=== PATIENT | female | born 1965 | race Hispanic/Latino ===

== ENCOUNTER 2018-05-11 12:10 | Emergency (ER) | payer OTHER ==
[~2018-05-11] VITALS: Ht 160 cm; Wt 136.5 kg
--- OUTSIDE RECORDS SUMMARY | 2018-05-11 12:15 | XMS REPORT | Clinical Summary ---
Author Author ALEXANDRA [facility] Address Unknown Phone Unavailable Care Team Providers Care Sports Attorney Name Role Phone Viveros--[facility]le PCP Allergies Comments Active Allergy Reactions Severity Noted Date Lose voice [place] 02/02/2018 Oral rash Coconut Rash Low 02/02/2018 Lose my voice [place] 02/02/2018 Medications End Date Status Medication Sig Dispensed Refills Start Date Active lisinopril-hydroCHLOROthi Take 1 tablet 0 azide by mouth (PRINZIDE,ZESTORETIC) daily. 20-25 mg per tablet Active gabapentin (NEURONTIN) Take 400 mg 0 400 MG capsule by mouth 2 (two) times daily. Active fentaNYL (DURAGESIC) 50 Place 1 patch 0 mcg/hr patch onto the skin every third day. Active esomeprazole (NEXIUM) 40 Take 40 mg by 0 MG capsule mouth daily. Active albuterol HFA (VENTOLIN Inhale 1 puff 0 HFA) 90 mcg/actuation by mouth via inhaler inhaler every 6 (six) hours as needed for Wheezing. Active budesonide-formoterol Inhale 2 0 (SYMBICORT) 160-4.5 puffs by mcg/actuation inhaler mouth via inhaler 2 (two) times daily. Active metoprolol (LOPRESSOR) 50 Take 50 mg by 0 MG tablet mouth 2 (two) times daily. 03/02/2018 Discontinued acetaminophen-codeine Take 1 tablet 30 tablet 0 (TYLENOL #4) 300-60 mg by mouth 8 per tablet every 4 (four) hours as needed for Pain for up to 10 days. Max Daily Amount: 6 tablets 03/12/2018 acetaminophen-codeine Take 1 tablet 50 tablet 0 (TYLENOL #4) 300-60 mg by mouth 8 per tablet every 4 (four) hours as needed for Pain for up to 10 days. Max Daily Amount: 6 tablets Active Problems Problem Noted Date Chronic pain syndrome 03/02/2018 Encounters Care Team Description Date Type Specialty Srinath Cisneros MD INSERTION,NEUROSTIMULATOR ELECTRODE PERCUTANEOUS 03/02/2018 Surgery Gaetano Mix Jr., MD 03/02/2018 Anesthesia Event Srinath Cisneros MD 03/02/2018 Hospital Encounter Myrna Hoang NP 02/04/2018 Anesthesia Pre-Admission Testing Event Srinath Cisneros MD 02/02/2018 Hospital Cardiology Encounter Srinath Cisneros MD 02/02/2018 Hospital Encounter Srinath Cisneros MD 02/02/2018 Hospital Pre-Admission Testing Encounter Srinath Cisneros MD Pre-op testing 02/02/2018 Hospital Pre-Admission Testing Encounter Srinath Cisneros MD Pre-op testing (Primary Dx) 01/27/2018 Orders Only Neurosurgery after 05/10/2017 Social History Date Tobacco Use Types Packs/Day Years Used Never Smoker Smokeless Tobacco: Never Used Alcohol Use Drinks/Week oz/Week Comments No Sex Assigned at Date Recorded Not on file Industry Job Start Date Occupation Not on file Not on file Not on file Travel End Travel History Travel Start No recent travel history available. Last Filed Vital Signs Time Taken Vital Sign Reading 03/02/2018 6:00 PM ASSISTANT MANAGER/EMBALMER Blood Pressure 126/68 03/02/2018 6:00 PM ASSISTANT MANAGER/EMBALMER Pulse 96 03/02/2018 6:00 PM ASSISTANT MANAGER/EMBALMER Temperature 36.4 C (97.6 F) 03/02/2018 6:00 PM ASSISTANT MANAGER/EMBALMER Respiratory Rate 18 03/02/2018 6:00 PM ASSISTANT MANAGER/EMBALMER Oxygen Saturation 95% - Inhaled Oxygen - Concentration 03/02/2018 7:52 AM ASSISTANT MANAGER/EMBALMER Weight 137 kg (302 lb 1.6 oz) 03/02/2018 7:52 AM ASSISTANT MANAGER/EMBALMER Height 152.4 cm (5') 03/02/2018 7:52 AM ASSISTANT MANAGER/EMBALMER Body Mass Index 59 Plan of Treatment Not on file Implants Device Identifier Shelf Expiration Date Model / Serial / Lot Implanted Type Area Manufactur er 11/15/2021 [id number] / / [id number] Lead Vectris Surescan 1x8 60cm Pain N/A: Spine MEDTRONIC: [id number] - [id number] Mgmt/Stimu Thoracic NEUROMODUL Implanted: Qty: 1 on 03/02/2018 by Srinath Michael MD 11/19/2021 [id number] / / [id number] Lead Vectris Surescan 1x8 60cm Pain N/A: Spine MEDTRONIC: [id number] - [id number] Mgmt/Stimu Thoracic NEUROMODUL Implanted: Qty: 1 on 03/02/2018 by Srinath Michael MD 01/18/2022 [id number] / / [id number] Lead Vectris Surescan 1x8 60cm Pain N/A: Spine [employer]: [id number] - [id number] Mgmt/Stimu Thoracic NEUROMODUL Implanted: Qty: 1 on 03/02/2018 by Srinath Michael MD 01/21/2019 [id number] / [id number] / Mri Intellis Sensor [id number] - Pain N/A: Spine [employer]TR[employer]IC: [id number] Mgmt/Stimu Thoracic NEUROMODUL Implanted: Qty: 1 on 03/02/2018 by Srinath Michael MD Procedures Comments Procedure Name Priority Date/Time Associated Diagnosis RHYTHM STRIP - SCAN 03/03/2018 12:30 PM ASSISTANT MANAGER/EMBALMER [place] STE[employer] 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 OR 30 Routine 03/02/2018 MINUTE INCREMENTS 12:37 PM ASSISTANT MANAGER/EMBALMER PROCEDURE W/ C-ARM 03/02/2018 Chronic pain syndrome 11:30 AM ASSISTANT MANAGER/EMBALMER Special Needs (C-ARM, MEDTRONIC) INSERTION,SPINAL CORD 03/02/2018 Chronic pain syndrome NEUROSTIMULATOR 11:30 AM ASSISTANT MANAGER/EMBALMER Special Needs (C-ARM, [employer]TR[employer]) INSERTION,NEUROSTIMULATOR 03/02/2018 Chronic pain syndrome ELECTRODE PERCUTANEOUS 11:30 AM ASSISTANT MANAGER/EMBALMER Special Needs (C-ARM, MEDTRON[employer]) POCT , URINE Routine 03/02/2018 8:14 AM ASSISTANT MANAGER/EMBALMER TRANSFUSION SERVICE 02/03/2018 REPORT - SCAN 6:04 PM CDT XR CHEST 2 VIEWS Routine 02/02/2018 Pre-op testing 4:41 PM CDT CBC W/PLT COUNT & AUTO Routine 02/02/2018 Pre-op testing DIFFERENTIAL 4:06 PM CDT TYPE AND SCREEN, Routine 02/02/2018 Pre-op testing AUTOMATED 4:06 PM CDT URINALYSIS W/ REFLEX Routine 02/02/2018 Pre-op testing URINE CULTURE 4:06 PM CDT CBC W/PLT COUNT & AUTO Routine 02/02/2018 Pre-op testing DIFFERENTIAL 4:06 PM CDT BASIC METABOLIC PANEL (7) Routine 02/02/2018 Pre-op testing 4:06 PM CDT PROTHROMBIN TIME/INR Routine 02/02/2018 Pre-op testing 4:06 PM CDT APTT Routine 02/02/2018 Pre-op testing 4:06 PM CDT ECG 12-LEAD Routine 02/02/2018 4:01 PM CDT Procedure Note - Interface, External Ris In - 02/02/2018 4:19 PM CDT Ventricula r Rate 80 BPM Atrial Rate 80 BPM P-R Interval 214 ms QRS Duration 72 ms Q-T Interval 376 ms QTC Calculatio n(Bazett) 433 ms P [place] 51 degrees R [place] -28 degrees T [place] 56 degrees Sinus rhythm with 1st degree A-V block Low voltage QRS Inferior infarct , age undetermin ed Cannot rule out Anterior infarct , age undetermin ed Abnormal ECG No previous ECGs available ECG 12-LEAD STAT 02/02/2018 Pre-op testing 4:01 PM CDT after 05/10/2017 Results * RHYTHM STRIP - SCAN (03/03/2018 12:30 PM ASSISTANT MANAGER/EMBALMER) Narrative Performed At * [place] Lehr Operator in OR 30 minute increments (03/02/2018 12:37 PM ASSISTANT MANAGER/EMBALMER) Narrative Performed At FINAL REPORT [employer] [facility] Intraoperative fluoroscopy films performed by the referring physician. Number of images: 2 Fluoroscopic time: 395 second The films were submitted to PACS postprocedure. The radiologist was not present at the time of examination. An interpretation was not requested. The submitted images are nondiagnostic without real-time visualization. Please refer to the performing physician's dictation for all details regarding the procedure including the submitted images. The radiologist did not perform fluoroscopy. Signed: Sabra Perea MD Report Verified Date/Time:03/02/2018 13:53:46 Reading Location: [address] Consult Reading Room Procedure Note Interface, External Ris In - 03/02/2018 1:55 PM ASSISTANT MANAGER/EMBALMER FINAL REPORT Intraoperative fluoroscopy films performed by the referring physician. Number of images: 2 Fluoroscopic time: 395 second The films were submitted to PACS postprocedure. The radiologist was not present at the time of examination. An interpretation was not requested. The submitted images are nondiagnostic without real-time visualization. Please refer to the performing physician's dictation for all details regarding the procedure including the submitted images. The radiologist did not perform fluoroscopy. Signed: Sabra Perea MD Report Verified Date/Time: 03/02/2018 13:53:46 Reading Location: [address] Consult Reading Room Performing Organization Address City/State/Zipcode Phone Number [facility] * POCT , urine (03/02/2018 8:14 AM ASSISTANT MANAGER/EMBALMER) Test Urine, POC Negative Control line present?, Yes POC Background clear?, POC Yes UPT Cassette Lot #, POC [id number] UPT Cassette Expiration [id number] Date, POC * TRANSFUSION SERVICE REPORT - SCAN (02/03/2018 6:04 PM CDT) Narrative Performed At * XR chest 2 views (02/02/2018 4:41 PM CDT) Narrative Performed At FINAL REPORT [employer] INDICATION: Chronic Pain Disorder COMPARISON: None. TECHNIQUE: Chest radiograph, two views, PA and lateral. FINDINGS / IMPRESSION: Lung volumes are normal and lungs are clear. Cardiac and mediastinal contours are normal. No pneumothorax or pleural effusion is demonstrated. Osseous structures are unremarkable. Signed: Tere Quinn MD Report Verified Date/Time:02/02/2018 16:50:45 Reading Location: [address] Radiology Reading Room Procedure Note Interface, External Ris In - 02/02/2018 4:52 PM CDT FINAL REPORT INDICATION: Chronic Pain Disorder COMPARISON: None. TECHNIQUE: Chest radiograph, two views, PA and lateral. FINDINGS / IMPRESSION: Lung volumes are normal and lungs are clear. Cardiac and mediastinal contours are normal. No pneumothorax or pleural effusion is demonstrated. Osseous structures are unremarkable. Signed: Tere Quinn MD Report Verified Date/Time: 02/02/2018 16:50:45 Reading Location: [address] Radiology Reading Room Performing Organization Address City/State/Zipcode Phone Number [facility] * Urinalysis w/Microscopic + Reflex to Culture (02/02/2018 4:06 PM CDT) Color, UA Yellow [facility] Clarity, UA Hazy [facility] Specific [place], UA 1.018 1.001 - 1.035 [facility] pH, UA 5.5 5.0 - 8.0 [facility] Protein, UA 10 mg/dL (A) Negative [facility] Glucose, UA Negative Negative [facility] Ketones, UA Negative Negative [facility] Bilirubin, UA Negative Negative [facility] Blood, UA Negative Negative [facility] Nitrite, UA Negative Negative [facility] Leukocytes, UA Negative Negative [facility] Urobilinogen, UA 0.2 0.2 - 1.0 mg/dL [facility] RBC, UA 1 /HPF [facility] WBC, UA 0 /HPF [facility] Bacteria, UA Rare [facility] Mucus Occasional [facility] Squam Epithel, UA 1 /HPF [facility] Specimen Source [facility] Specimen Urine Performing Organization Address City/State/Zipcode Phone Number [facility] [address] [place] [address] [facility] * Type and screen, automated (02/02/2018 4:06 PM CDT) ABO/RH AUTOMATED (BEAKER) A POSITIVE [facility] Ab Scrn NEGATIVE [facility] Specimen Blood Performing Organization Address City/State/Zipcode Phone Number [facility] [address] [place] [address] [facility] * CBC with platelet count + automated diff (02/02/2018 4:06 PM CDT) WBC 5.9 3.5 - 10.5 K/L [facility] RBC 3.72 (L) 3.93 - 5.22 M/L [facility] Hemoglobin 11.9 11.2 - 15.7 GM/DL [facility] Hematocrit 37.7 34.1 - 44.9 % [facility] MCV 101.3 (H) 79.4 - 94.8 fL [facility] MCH 32.0 25.6 - 32.2 pg [facility] MCHC 31.6 (L) 32.2 - 35.5 GM/DL [facility] RDW 12.2 11.7 - 14.4 % [facility] Platelets 238 150 - 450 K/CU MM [facility] MPV 12.2 9.4 - 12.3 fL [facility] nRBC 0 0 - 0 /100 WBC [facility] % Neutros 55 % [facility] % Lymphs 34 % [facility] % Monos 8 % [facility] % Eos 3 % [facility] % Baso 1 % [facility] # Neutros 3.23 1.56 - 6.13 K/L [facility] # Lymphs 2.02 1.18 - 3.74 K/L [facility] # Monos 0.45 (H) 0.24 - 0.36 K/L [facility] # Eos 0.15 0.04 - 0.36 K/L [facility] # Baso 0.03 0.01 - 0.08 K/L [facility] Immature 0 0 - 1 % [facility] Granulocytes-[facility] Specimen Blood Performing Organization Address City/[facility]/Zipcode Phone Number [address] [address] [phone] [place] [address] * aPTT (02/02/2018 4:06 PM CDT) PTT 37.9 (H) 22.5 - 36.0 seconds [facility] Specimen Blood Performing Organization Address City/[facility]/Zipcode Phone Number [address] [address] [phone] [place] [address] * Prothrombin time/INR (02/02/2018 4:06 PM CDT) Protime 15.0 (H) 11.7 - 14.7 seconds [facility] INR 1.2 <=5.9 [facility] Specimen Blood Narrative Performed At RECOMMENDED COUMADIN/WARFARIN INR THERAPY RANGES [facility] STANDARD DOSE: 2.0 - 3.0 Includes: PROPHYLAXIS for venous thrombosis, [facility] systemic embolization; TREATMENT for venous thrombosis and/or pulmonary embolus. HIGH RISK: Target INR is 2.5-3.5 for patients with mechanical heart valves. Performing Organization Address City/State/[facility] Phone Number [facility] [address] [place] [address] [facility] * Basic Metabolic Panel (02/02/2018 4:06 PM CDT) Sodium 136 136 - 145 meq/L [facility] Potassium 4.1 3.5 - 5.1 meq/L [facility] Chloride 102 98 - 107 meq/L [facility] CO2 27 22 - 29 meq/L [facility] BUN 49 (H) 7 - 21 mg/dL [facility] Creatinine 1.50 (H) 0.57 - 1.25 mg/dL [facility] Glucose 118 (H) 70 - 105 mg/dL [facility] Calcium 9.3 8.4 - 10.2 mg/dL [facility] EGFR 36Comment: ESTIMATED GFR IS mL/min/1.73 sq m [facility] NOT ACCURATE CREATININE [facility] CLEARANCE IN PREDICTING GLOMERULAR FILTRATION RATE. ESTIMATED GFR IS NOT APPLICABLE FOR DIALYSIS PATIENTS. Specimen Blood Performing Organization Address City/[facility] Phone Number [facility] [address] [place] [address] [facility] * ECG 12 lead (02/02/2018 4:01 PM CDT) Narrative Performed At Ventricular Rate 80 BPM [facility] M[facility] Atrial Rate 80 BPM P-R Interval 214 ms QRS Duration 72 ms Q-T Interval 376 ms QTC Calculation(Bazett) 433 ms P [place] 51 degrees R [place] -28 degrees T [place] 56 degrees Sinus rhythm with 1st degree A-V block Low voltage QRS Inferior infarct , age undetermined Poor R wave progression Cannot rule out Anterior infarct , age undetermined Abnormal ECG No previous ECGs available Confirmed by Zayda ALEXANDER BASANT ([id number]) on 02/03/2018 2:35:01 PM Procedure Note Interface, External Ris In - 02/03/2018 2:35 PM CDT Ventricular Rate 80 BPM Atrial Rate 80 BPM P-R Interval 214 ms QRS Duration 72 ms Q-T Interval 376 ms QTC Calculation(Bazett) 433 ms P [place] 51 degrees R [place] -28 degrees T [place] 56 degrees Sinus rhythm with 1st degree A-V block Low voltage QRS Inferior infarct , age undetermined Poor R wave progression Cannot rule out Anterior infarct , age undetermined Abnormal ECG No previous ECGs available Confirmed by Zayda ALEXANDER BASANT ([id number]) on 02/03/2018 2:35:01 PM Performing Organization Address City/State/Zipcode Phone Number GE MUSE after 05/10/2017 Insurance Payer Benefit Subscriber ID Type Phone Address Plan / Group MEDICAID - MEDICAID MGD [facility] xxxxxxxxx Medicaid CARE COMM STAR Contracted PLAN
--- OUTSIDE RECORDS SUMMARY | 2018-05-11 12:15 | XMS REPORT ---
Author Author [facility] Address Unknown Phone Unavailable Care Team Providers Care Imaging Tech Name Role Phone IFEANYI CHAIREZ Unavailable Unavailable Payers Payer Name Policy Type Policy Number Effective Date Expiration Date Problems This patient has no known problems. Allergies, Adverse Reactions, Alerts Allergy Name Allergy Type Status Severity Reaction(s) Onset Date Inactive Date Treating Clinician Comments pecan nut DA Active U 2016-11-18 00:00:00 Coconut DA Active U 2015-10-17 00:00:00 almond oil DA Active SV 2015-10-17 00:00:00 Medications This patient has no known medications. Results Test Description Test Time Test Comments Text Results Atomic Results Result Comments ALEXIA CANCINO IN OR/30 MINUTE INCREMENTS 2018-03-02 13:53:00 Reason for exam:->Chronic Pain FINAL REPORT Intraoperative fluoroscopy films performed by the referring physician. Number of images: 2Fluoroscopic time: 395 second The films were submitted to PACS postprocedure. The radiologist was not present at the time of examination. An interpretation was not requested. The submitted images are nondiagnostic without real-time visualization. Please refer to the performing physician's dictation for all details regarding the procedure including the submitted images. The radiologist did not perform fluoroscopy. Signed: Sabra Perea MDReport Verified Date/Time: 03/02/2018 13:53:46 Reading Location: [facility] B1 [id number] Consult Reading Room W/PLT COUNT & AUTO DIFFERENTIAL 2018-02-02 18:31:00 WHITE BLOOD CELL COUNT (BEAKER) (test mkty=798) 5.9 K/ L 3.5-10.5 RED BLOOD CELL COUNT (BEAKER) (test poua=175) 3.72 M/ L 3.93-5.22 HEMOGLOBIN (BEAKER) (test rpcz=304) 11.9 GM/DL 11.2-15.7 HEMATOCRIT (BEAKER) (test wugr=139) 37.7 % 34.1-44.9 MEAN CORPUSCULAR VOLUME (BEAKER) (test ypsf=664) 101.3 fL 79.4-94.8 MEAN CORPUSCULAR HEMOGLOBIN (BEAKER) (test ekgl=238) 32.0 pg 25.6-32.2 MEAN CORPUSCULAR HEMOGLOBIN CONC (BEAKER) (test ndji=577) 31.6 GM/DL 32.2-35.5 RED CELL DISTRIBUTION WIDTH (BEAKER) (test ybyu=974) 12.2 % 11.7-14.4 PLATELET COUNT (BEAKER) (test ketk=808) 238 K/CU MM 150-450 MEAN PLATELET VOLUME (BEAKER) (test aeww=029) 12.2 fL 9.4-12.3 NUCLEATED RED BLOOD CELLS (BEAKER) (test abmj=294) 0 /100 WBC 0-0 NEUTROPHILS RELATIVE PERCENT (BEAKER) (test ihqh=874) 55 % LYMPHOCYTES RELATIVE PERCENT (BEAKER) (test gtad=600) 34 % MONOCYTES RELATIVE PERCENT (BEAKER) (test sfcg=054) 8 % EOSINOPHILS RELATIVE PERCENT (BEAKER) (test psvr=449) 3 % BASOPHILS RELATIVE PERCENT (BEAKER) (test oufs=684) 1 % NEUTROPHILS ABSOLUTE COUNT (BEAKER) (test bldf=323) 3.23 K/ L 1.56-6.13 LYMPHOCYTES ABSOLUTE COUNT (BEAKER) (test rlkn=399) 2.02 K/ L 1.18-3.74 MONOCYTES ABSOLUTE COUNT (BEAKER) (test avpe=919) 0.45 K/ L 0.24-0.36 EOSINOPHILS ABSOLUTE COUNT (BEAKER) (test xcdm=206) 0.15 K/ L 0.04-0.36 BASOPHILS ABSOLUTE COUNT (BEAKER) (test hgtp=707) 0.03 K/ L 0.01-0.08 IMMATURE GRANULOCYTES-RELATIVE PERCENT (BEAKER) (test lsiq=0075) 0 % 0-1 BASIC METABOLIC [id number] 18:07:00* Test Item Value Reference Range Comments SODIUM (BEAKER) (test erin=438) 136 meq/L 136-145 POTASSIUM (BEAKER) (test jsvl=653) 4.1 meq/L 3.5-5.1 CHLORIDE (BEAKER) (test dpzb=888) 102 meq/L 98-107 CO2 (BEAKER) (test bepw=453) 27 meq/L 22-29 BLOOD UREA NITROGEN (BEAKER) (test hxyf=571) 49 mg/dL 7-21 CREATININE (BEAKER) (test vqok=718) 1.50 mg/dL 0.57-1.25 GLUCOSE RANDOM (BEAKER) (test rrly=307) 118 mg/dL 70-105 CALCIUM (BEAKER) (test hwuu=767) 9.3 mg/dL 8.4-10.2 EGFR (BEAKER) (test sjsq=2764) 36 mL/min/1.73 sq m ESTIMATED GFR IS NOT ACCURATE CREATININE CLEARANCE IN PREDICTING GLOMERULAR FILTRATION RATE. ESTIMATED GFR IS NOT APPLICABLE FOR DIALYSIS PATIENTS. [id number] 17:45:00* Test Item Value Reference Range Comments PARTIAL THROMBOPLASTIN TIME (BEAKER) (test fdne=592) 37.9 seconds 22.5-36.0 PROTHROMBIN TIME/[id number] 17:44:00* Test Item Value Reference Range Comments PROTIME (BEAKER) (test efbp=594) 15.0 seconds 11.7-14.7 INR (BEAKER) (test pszy=786) 1.2 <=5.9 RECOMMENDED COUMADIN/WARFARIN INR THERAPY RANGESSTANDARD DOSE: 2.0 - 3.0 Inclu memo: PROPHYLAXIS for venous thrombosis, systemic embolization; TREATMENT for shady ous thrombosis and/or pulmonary embolus.HIGH RISK: Target INR is 2.5-3.5 for pat ients with mechanical heart valves.URINALYSIS W/ REFLEX URINE [id number] 17:23:00* Test Item Value Reference Range Comments COLOR (BEAKER) (test jiht=879) Yellow CLARITY (BEAKER) (test mbvw=690) Hazy SPECIFIC GRAVITY UA (BEAKER) (test dyle=658) 1.018 1.001-1.035 PH UA (BEAKER) (test nfhd=231) 5.5 5.0-8.0 PROTEIN UA (BEAKER) (test ynpx=431) 10 mg/dL Negative GLUCOSE UA (BEAKER) (test bvkh=365) Negative Negative KETONES UA (BEAKER) (test rtvg=954) Negative Negative BILIRUBIN UA (BEAKER) (test uxet=210) Negative Negative BLOOD UA (BEAKER) (test hegq=258) Negative Negative NITRITE UA (BEAKER) (test thrw=514) Negative Negative LEUKOCYTE ESTERASE UA (BEAKER) (test dhky=477) Negative Negative UROBILINOGEN UA (BEAKER) (test olep=504) 0.2 mg/dL 0.2-1.0 RBC UA (BEAKER) (test syjz=046) 1 /HPF WBC UA (BEAKER) (test qgux=780) 0 /HPF BACTERIA (BEAKER) (test tmlg=405) Rare MUCUS (BEAKER) (test ppfq=7606) Occasional SQUAMOUS EPITHELIAL (BEAKER) (test iagj=608) 1 /HPF SOURCE(BEAKER) (test uhzg=5687) RAD, CHEST, 2 [id number] 16:50:00Reason for exam:->Chronic Pain Disorder FINAL REPORT INDICATION: Chronic Pain Disorder COMPARISON : None. TECHNIQUE: Chest radiograph, two views, PA and lateral. FINDINGS / IMPRE SSION:Lung volumes are normal and lungs are clear. Cardiac and mediastinal conto urs are normal. No pneumothorax or pleural effusion is demonstrated. Osseous str uctures are unremarkable. Signed: Tere Quinn MDReport Verified Date/Time: 02/02/2018 16:50:45 Reading Location: [address] Radiology Reading Room Elec tronically signed by: TERE QUINN M.D. on 02/02/2018 04:50 PM
[2018-05-11] MEDS ORDERED: ACETAMINOPHEN/CODEINE 300MG - 30MG TAB PO ONE (12:30)
--- NOTE | 2018-05-11 13:28 | Diagnostic Imaging Report ---
EXAMINATION: CHEST SINGLE (PORTABLE) INDICATION: Cough. Congestion COMPARISON: April 30, 2011 FINDINGS: TUBES and LINES: None. LUNGS: Lungs are well inflated. Perihilar peribronchial hazy opacity could be due to bronchitis. There is no evidence of pneumonia or pulmonary edema. PLEURA: No pleural effusion or pneumothorax. HEART AND MEDIASTINUM: The cardiomediastinal silhouette is unremarkable. BONES AND SOFT TISSUES: No acute osseous lesion. Soft tissues are unremarkable. UPPER ABDOMEN: No free air under the diaphragm. IMPRESSION: Perihilar peribronchial hazy opacity could be due to bronchitis. Signed by: Dr. Tip Blackwell M.D. on 05/11/2018 1:25 PM
[2018-05-11 13:37] LABS: ALANINE AMINOTRANSFERASE 11 IU/L (0-55); ALBUMIN 3.9 g/dL (3.5-5.0); ALBUMIN/GLOBULIN RATIO 1.1 (0.8-2.0); ALKALINE PHOSPHATASE 93 IU/L (40-150); ANION GAP 14.6 mmol/L (8-16); BLOOD UREA NITROGEN 26 mg/dL (7-26); BUN/CREATININE RATIO 28 (6-25); CALCIUM 9.6 mg/dL (8.4-10.2); CARBON DIOXIDE 24 mmol/L (22-29); CHLORIDE 102 mmol/L (98-107); CREATINE KINASE 64 IU/L (29-168); CREATININE, SERUM 0.93 mg/dL (0.57-1.11); EST GLOMERULAR FILTRATION RATE > 60 ML/MIN (60-); GLUCOSE 88 mg/dL (74-118); POTASSIUM 4.6 mmol/L (3.5-5.1); SODIUM 136 mmol/L (136-145)
[2018-05-11 14:09] LABS: BASOPHILS % 0.3 % (0.0-1.0); EOSINOPHILS # (AUTO) 0.4 (0.0-0.4); HEMATOCRIT 37.3 % (34.2-44.1); HEMOGLOBIN 12.6 g/dL (12.0-16.0); LYMPHOCYTES # (AUTO) 1.7 (1.0-3.2); LYMPHOCYTES % 25.1 % (18.0-39.1); MEAN CORPUSCULAR HEMOGLOBIN 31.9 pg (28-32); MEAN CORPUSCULAR HGB CONC 33.8 g/dL (31-35); MEAN CORPUSCULAR VOLUME 94.4 fL (81-99); MONOCYTES # (AUTO) 0.4 (0.2-0.8); MONOCYTES % 5.4 % (4.4-11.3); NEUTROPHILS # (AUTO) 4.2 (2.1-6.9); NEUTROPHILS % 62.8 % (38.7-80.0); PLATELET COUNT 263 x10e3/uL (140-360); RED BLOOD COUNT 3.95 x10e6/uL (3.6-5.1); RED CELL DISTRIBUTION WIDTH 12.2 % (11.7-14.4)
[2018-05-11] MEDS ORDERED: LEVAQUIN500 MG PO (14:11)
[2018-05-11] MEDS ORDERED: PREDNISONE20 MG PO (14:12)
--- NOTE | 2018-05-11 14:44 | Diagnostic Imaging Report ---
EXAM: CT Chest WITH contrast - PE protocol INDICATION: Rule out pulmonary embolism; chest pain, cough COMPARISON: None TECHNIQUE: Chest was scanned utilizing a multidetector helical scanner from the lung apex through the level of the adrenal glands without administration of IV contrast. Coronal and sagittal reformations were obtained. PE protocol was performed. Dose modulation, iterative reconstruction, and/or weight based adjustment of the mA/kV was utilized to reduce the radiation dose to as low as reasonably achievable. IV CONTRAST: 100 mL of Isovue 370 RADIATION DOSE: Total DLP: 622.7 mGy*cm COMPLICATIONS: None FINDINGS: LINES/ TUBES: Partially seen thoracic spine catheter. PULMONARY ARTERIES: The study is satisfactory for the evaluation of pulmonary embolism. The main pulmonary artery measures up to 2.7 cm. No evidence of pulmonary embolism. LUNGS AND AIRWAYS: The central airways are patent. No evidence of pneumonia or pulmonary edema. Mild patchy dependent atelectasis in the lower lobes PLEURA: The pleural spaces are clear. HEART AND MEDIASTINUM: The thyroid gland is normal. No mediastinal, hilar or axillary lymphadenopathy. No cardiomegaly or pericardial effusion. Coronary atherosclerosis. UPPER ABDOMEN: Limited non-contrast views of the upper abdomen show no abnormality within the visualized liver, spleen, pancreas, or kidneys. The adrenal glands are normal. BONES: No acute osseous abnormality. SOFT TISSUES: Unremarkable. IMPRESSION: No evidence of pulmonary embolism or other acute CT abnormality in the thorax. Signed by: Dr. Shawna Wilson MD on 05/11/2018 2:41 PM
[2018-05-11] MEDS ORDERED: TYLENOL WITH C1 EACH PO (14:45)
[2018-05-11] MEDS ORDERED: SODIUM CHLORIDE 0.9% 50ML 50 ML ONE (16:01)
[2018-05-11] MEDS ORDERED: IOPAMIDOL 370 MG/ML 200 ML INFUS..BTL INJ ONE (16:01)
== END 2018-05-11 15:07 | disposition home or self-care (01) ==
LOC: ER 12:10
DX: R05 Cough (principal); J20.9 Acute bronchitis, unspecified; B34.9 Viral infection, unspecified
CPT/HCPCS: 36415; 71045; 71260; 80053; 82550; 82553; 84484; 85025; 99284; Q9967

== ENCOUNTER 2021-11-11 12:29 | Emergency (ER) | payer OTHER ==
[~2021-11-11] VITALS: Ht 160 cm; Wt 136.5 kg
[~2021-11-11 12:29] MED LIST: LEVAQUIN500 MG PO; PREDNISONE20 MG PO; TYLENOL WITH C1 EACH PO
[2021-11-11 15:23] LABS: BASOPHILS % 0.2 % (0.0-1.0); EOSINOPHILS # (AUTO) 0.1 (0.0-0.4); EOSINOPHILS % 0.6 % (0.0-6.0); HEMATOCRIT 40.9 % (34.2-44.1); HEMOGLOBIN 14.1 g/dL (12.0-16.0); LYMPHOCYTES # (AUTO) 2.4 (1.0-3.2); LYMPHOCYTES % 28.3 % (18.0-39.1); MEAN CORPUSCULAR HEMOGLOBIN 32.7 pg (28-32); MEAN CORPUSCULAR HGB CONC 34.5 g/dL (31-35); MEAN CORPUSCULAR VOLUME 94.9 fL (81-99); MONOCYTES # (AUTO) 0.8 (0.2-0.8); NEUTROPHILS # (AUTO) 5.2 (2.1-6.9); NEUTROPHILS % 61.3 % (38.7-80.0); PLATELET COUNT 338 x10e3/uL (140-360); RED BLOOD COUNT 4.31 x10e6/uL (3.6-5.1); RED CELL DISTRIBUTION WIDTH 11.9 % (11.7-14.4)
[2021-11-11 15:46] LABS: ALBUMIN 3.8 g/dL (3.5-5.0); ALBUMIN/GLOBULIN RATIO 0.8 (0.8-2.0); ANION GAP 18.1 mmol/L (8-16); CALCIUM 9.5 mg/dL (8.4-10.2); CREATININE, SERUM 0.99 mg/dL (0.57-1.11); POTASSIUM 4.1 mmol/L (3.5-5.1)
[2021-11-11 16:15] LABS: CLARITY,URINE SL CLOUDY (CLEAR); COLOR,URINE YELLOW (YELLOW); KETONES,URINE NEGATIVE (NEGATIVE); LEUKOCYTE ESTERASE ,URINE NEGATIVE (NEGATIVE); NITRITE,URINE NEGATIVE (NEGATIVE); PROTEIN,URINE DIPSTICK NEGATIVE (NEGATIVE); URINE UROBILINOGEN 0.2 mg/dL (0.2 - 1)
[2021-11-11 16:35] LABS: AMORPHOUS SEDIMENT,URINE MODERATE (FEW); BACTERIA,URINE MODERATE /HPF; EPITHELIAL CELLS,URINE MODERATE /LPF
== END 2021-11-11 18:48 | disposition home or self-care (01) ==
LOC: ER 12:58
DX: M54.50 Low back pain, unspecified (principal); G89.29 Other chronic pain; R11.0 Nausea; I10 Essential (primary) hypertension; J45.909 Unspecified asthma, uncomplicated
CPT/HCPCS: 36415; 71045; 80053; 81001; 84484; 85025; 99283

== ENCOUNTER 2021-11-26 16:47 | Emergency (ER) | payer OTHER ==
[~2021-11-26] VITALS: Ht 154.9 cm; Wt 129.3 kg
[2021-11-26] MEDS ORDERED: SODIUM CHLORIDE 0.9% 1000ML 1,000 ML IV STA (17:09)
[2021-11-26] MEDS ORDERED: LISINOPRIL10 MG PO (17:29)
[2021-11-26] MEDS ORDERED: METOPROLOL SUCC50 MG PO (17:29)
[2021-11-26] MEDS ORDERED: SODIUM CHLORIDE 0.9% 1000ML 1,000 ML ONE (18:05)
[2021-11-26] MEDS ORDERED: ZANAFLEX2 M1 PO (18:12)
== END 2021-11-26 18:40 | disposition home or self-care (01) ==
LOC: FSED 17:04
DX: M25.562 Pain in left knee (principal); M54.9 Dorsalgia, unspecified; W01.0XXA Fall on same level from slipping, tripping and stumbling without subsequent striking against object, initial encounter; Y93.01 Activity, walking, marching and hiking; Y92.89 Other specified places as the place of occurrence of the external cause; N17.9 Acute kidney failure, unspecified; E86.0 Dehydration; G62.9 Polyneuropathy, unspecified; I10 Essential (primary) hypertension; J45.909 Unspecified asthma, uncomplicated; R94.31 Abnormal electrocardiogram [ECG] [EKG]
CPT/HCPCS: 80053; 82553; 83880; 84484; 93005; 99283; J7030

== ENCOUNTER 2022-01-23 19:33 | Emergency (ER) | payer OTHER ==
[~2022-01-23] VITALS: Ht 154.9 cm; Wt 122.5 kg
[~2022-01-23 19:33] MED LIST changes: +LISINOPRIL10 MG PO; +METOPROLOL SUCC50 MG PO; +ZANAFLEX2 M1 PO
[2022-01-23] MEDS ORDERED: IBUPROFEN 600 MG TAB ONE (20:22)
[2022-01-23] MEDS ORDERED: MEDROL4 M2 PO (20:42)
[2022-01-23] MEDS ORDERED: ONDANSETRON ODT4 MG PO (20:58)
== END 2022-01-23 21:08 | disposition home or self-care (01) ==
LOC: FSED 19:48
DX: R50.9 Fever, unspecified (principal); B34.9 Viral infection, unspecified; J45.909 Unspecified asthma, uncomplicated; I10 Essential (primary) hypertension; M54.9 Dorsalgia, unspecified; G89.29 Other chronic pain; E66.9 Obesity, unspecified
CPT/HCPCS: 83518; 87400; 99283